=== PATIENT | male | born 1990 | race Caucasian/White ===

== ENCOUNTER 2020-12-07 09:26 | Emergency (ER) | payer OTHER, SELFPAY ==
--- NOTE | 2020-12-07 09:47 | ED.ABDPAIN ---
HPI - Abdominal Pain General Chief Complaint: Abdominal Pain Stated Complaint: ABD PAIN VOMITING Time Seen by Provider: 12/07/20 09:47 Source: patient Mode of arrival: ambulatory Limitations: no limitations History of Present Illness HPI narrative: 30 yo male with 1 week of diffuse abdominal pain and vomiting, has a hx of THC use was using heat to alleviate pain but at this time states it stopped working - had CT scan that was negative in June for similar complaint MD elicited complaint: abdominal pain Pertinent past history: other (hx of episodes in past) Onset (ago): week(s) (1) Pain Consistency: constant Severity: moderate Quality: cramping and aching Radiation: none Migration to: no migration Exacerbating factors: eating Relieving factors: nothing Context: history of similar episodes Associated symptoms: nausea, vomiting and diarrhea Related Data Previous Rx's Medication Instructions Recorded famotidine [Pepcid] 20 mg PO DAILY PRN #30 tab 12/07/20 ondansetron 4 mg PO Q8H PRN #20 tab 12/07/20 Allergies Allergy/AdvReac Type Severity Reaction Status Date / Time cefaclor [From [facility]] Allergy Unknown UNKNOWN Unverified 04/26/20 19:51 Review of Systems Review of Systems Constitutional : No Weight loss, No Fever, No Chills ENT/Mouth : No sore throat, No Rhinorrhea Eyes: No Swelling, No Redness Cardiovascular : No Chest Pain, No SOB, NoEdema Respiratory : No Cough, No Sputum, No Wheezing Gastrointestinal : Positive Nausea, Positive Vomiting, positive Diarrhea, positive abdominal Pain, No Hematochezia, No Melena Genitourinary : No Dysuria, No Urinary Frequency, No Hematuria, No Urgency Musculoskeletal : No joint pain, No Myalgias, No Joint Swelling Skin : No Skin Lesions, No rash Neuro : No Weakness, No Numbness, No Dizziness, No Headache Psych : No Anxiety/Panic, No Depression Heme/Lymph: No Bruising, No Lymphadenopathy Endocrine : No Polyuria, No Polydipsia All other systems reviewed and are negative. Physical Exam Vital Signs: Vital Signs: Last Vital Signs Temp 98.5 F 12/07/20 10:33 Pulse 54 12/07/20 12:45 Resp 16 12/07/20 12:45 BP 117/69 12/07/20 12:45 Pulse Ox 98 12/07/20 12:45 Body Mass Index 23.6 Appearance: Alert. Oriented X3. No acute distress. Eyes: Pupils equal, round and reactive to light. ENT: mild dry MM Neck: Normal inspection. Neck supple. CVS: Normal heart rate and rhythm. Pulses normal. Respiratory: No respiratory distress. Breath sounds normal. Abdomen: Soft and mild ttp no rebound or guarding Skin: Skin warm and dry. Normal skin color. Normal skin turgor. Extremities: No lower extremity edema. No calf ttp Neuro: Oriented X 3. No motor deficit. No sensory deficit. Course Course Course Narrative: patient feels much better, able to tolerate PO stable for DC MDM - Abdominal Pain MDM Narrative Medical decision making narrative: 30 yo male hx of episodes of vomiting, abd pain in the past with negative CT scan he does smoke THC but noted this episode of his stomach issues is about 1 week which is longer than usual - at this time will hydrate, obtain labs, IV anti emetics and pepcid, negative CT scan in June for similar complaints Lab Data Result diagrams: 12/07/20 10:14 12/07/20 11:59 Labs: Lab Results 12/07/20 12/07/20 12/07/20 Range/Units 10:14 10:14 10:14 WBC 7.1 (4.8-10.8) X10*3/uL RBC 4.65 (4.60-5.80) X10*6/uL Hgb 15.1 (14.0-18.0) g/dl Hct 41.9 L (42-52) % MCV 90.1 (80-98) fL MCH 32.5 (27.0-33.0) pg MCHC 36.0 (31.0-36.0) g/dl RDW 10.8 L (11.0-16.0) % Plt Count 214 (160-400) X10*3/uL MPV 9.1 L (9.4-12.4) fL Immature Gran % (Auto) 0.1 (0.0-0.4) % Neut % (Auto) 72.4 (45-73) % Lymph % (Auto) 19.1 L (20-40) % [place] % (Auto) 5.4 (2-11) % Eos % (Auto) 2.4 (0-4) % Baso % (Auto) 0.6 (0-2) % Lymph # (Auto) 1.4 (1.2-4.9) X10*3/uL [place] # (Auto) 0.4 (0.1-1.2) X10*3/uL Eos # (Auto) 0.2 (0.0-0.4) X10*3/uL Baso # (Auto) 0.0 (0.0-0.2) X10*3/uL Abs Immat Gran (auto) 0.01 (0.00-0.03) X10*3/uL Absolute Neuts (auto) 5.1 (2.0-8.3) X10*3/uL Absolute Nucleated RBC 0.000 (0.0-0.012) X10*3/uL Nucleated RBC % (auto) 0.0 (0.0-0.2) /100WBC Hold Blue Top SEE NOTE Sodium (135-145) mmol/L Potassium (3.3-5.1) mmol/L Chloride (96-108) mmol/L Carbon Dioxide (22-29) mmol/L Anion Gap (12-20) BUN (9-16) mg/dL Creatinine (0.5-1.4) mg/dL Estim Creat Clear Calc Estimated GFR Random Glucose (60-115) mg/dL Calcium (8.4-10.2) mg/dL Magnesium (1.6-2.6) mg/dL Total Bilirubin (0.0-1.0) mg/dL Direct Bilirubin (0.0-0.5) mg/dL AST (5-37) U/L ALT (0-40) U/L Alkaline Phosphatase (39-117) U/L Total Protein (6.5-8.0) g/dL Albumin (3.5-5.0) g/dL Lipase (8-78) U/L COVID-19 (SHERIN) Negative (Negative) COVID-19 Clin Com See Note 12/07/20 Range/Units 11:59 WBC (4.8-10.8) X10*3/uL RBC (4.60-5.80) X10*6/uL Hgb (14.0-18.0) g/dl Hct (42-52) % MCV (80-98) fL MCH (27.0-33.0) pg MCHC (31.0-36.0) g/dl RDW (11.0-16.0) % Plt Count (160-400) X10*3/uL MPV (9.4-12.4) fL Immature Gran % (Auto) (0.0-0.4) % Neut % (Auto) (45-73) % Lymph % (Auto) (20-40) % [place] % (Auto) (2-11) % Eos % (Auto) (0-4) % Baso % (Auto) (0-2) % Lymph # (Auto) (1.2-4.9) X10*3/uL [place] # (Auto) (0.1-1.2) X10*3/uL Eos # (Auto) (0.0-0.4) X10*3/uL Baso # (Auto) (0.0-0.2) X10*3/uL Abs Immat Gran (auto) (0.00-0.03) X10*3/uL Absolute Neuts (auto) (2.0-8.3) X10*3/uL Absolute Nucleated RBC (0.0-0.012) X10*3/uL Nucleated RBC % (auto) (0.0-0.2) /100WBC Hold Blue Top Sodium 139 (135-145) mmol/L Potassium 4.0 (3.3-5.1) mmol/L Chloride 103 (96-108) mmol/L Carbon Dioxide 28 (22-29) mmol/L Anion Gap 12 (12-20) BUN 16 (9-16) mg/dL Creatinine 1.01 (0.5-1.4) mg/dL Estim Creat Clear Calc 109.4 Estimated GFR > 60 Random Glucose 82 (60-115) mg/dL Calcium 9.2 (8.4-10.2) mg/dL Magnesium 2.2 (1.6-2.6) mg/dL Total Bilirubin 1.3 H (0.0-1.0) mg/dL Direct Bilirubin 0.5 (0.0-0.5) mg/dL AST 13 (5-37) U/L ALT 10 (0-40) U/L Alkaline Phosphatase 43 (39-117) U/L Total Protein 7.5 (6.5-8.0) g/dL Albumin 4.6 (3.5-5.0) g/dL Lipase 29 (8-78) U/L COVID-19 (SHERIN) (Negative) COVID-19 Clin Com Discharge Plan Discharge Clinical Impression: Vomiting Qualifiers: Vomiting type: unspecified Vomiting Intractability: non-intractable Nausea presence: with nausea Qualified Code(s): R11.2 - Nausea with vomiting, unspecified Gastritis Qualifiers: Gastritis type: unspecified gastritis Chronicity: acute Gastritis bleeding: without bleeding Qualified Code(s): K29.00 - Acute gastritis without bleeding Patient Disposition: Home, Self-Care Instructions: Gastritis (ED) Additional Instructions: return to ED for any worsening symptoms or concerns COVID negative Prescriptions: New famotidine [Pepcid] 20 mg tablet 20 mg PO DAILY PRN (Reason: abdominal discomfort) Qty: 30 RF: 0 ondansetron 4 mg tablet,disintegrating 4 mg PO Q8H PRN (Reason: nausea and vomiting) Qty: 20 RF: 0 Referrals: Payam Bear [Physician] - 1 week Stand Alone Forms: Work/School Release [facility] [place] Past Medical History Attestation statement: The following information was validated with the patient. Medical History No known health problems Social History Social History (Updated 12/07/20 @ 10:08 by Lianet Castro DO) Alcohol intake: never Smoking Status: Never smoker Use of substances other than those prescribed or required for medical reasons: No Substance Use Type: Marijuana Advance Directives: No Advance Directives Information Provided: No
[2020-12-07 10:03] VITALS: BP 117/69; PULSE 65; RESP 16; TEMP 36.9; O2SAT 99; BMI 23.6
[2020-12-07 10:20] LABS: MANUAL DIFF FLAG NO
[2020-12-07 10:22] LABS: Basophils Percent Auto 0.6 % (0-2); Eosinophils Absolute Auto 0.2 X10*3/uL (0.0-0.4); Eosinophils Percent Auto 2.4 % (0-4); Hematocrit 41.9 % (42-52); Hemoglobin 15.1 g/dl (14.0-18.0); Imm Gran Abs Auto 0.01 X10*3/uL (0.00-0.03); Imm Gran Pct Auto 0.1 % (0.0-0.4); Lymphocytes Absolute Auto 1.4 X10*3/uL (1.2-4.9); Lymphocytes Percent Auto 19.1 % (20-40); Mean Corpuscular Hemoglobin 32.5 pg (27.0-33.0); Mean Corpuscular Volume 90.1 fL (80-98); Mean Platelet Volume 9.1 fL (9.4-12.4); Monocytes Absolute Auto 0.4 X10*3/uL (0.1-1.2); Monocytes Percent Auto 5.4 % (2-11); Neutrophils Absolute Auto 5.1 X10*3/uL (2.0-8.3); Neutrophils Percent Auto 72.4 % (45-73); Platelet Count 214 X10*3/uL (160-400); Red Blood Count 4.65 X10*6/uL (4.60-5.80); Red Cell Distribution Width 10.8 % (11.0-16.0); White Blood Count 7.1 X10*3/uL (4.8-10.8)
[2020-12-07] MEDS: 0.9 % Sodium Chloride 1,000 ML 999 ML IVCONT (10:23)
[2020-12-07] MEDS: Metoclopramide HCl 10 MG/2 ML VIAL IVPUSH (10:24)
[2020-12-07] MEDS: diphenhydrAMINE HCL 50 MG/ML VIAL 25 MG IVPUSH (10:24)
[2020-12-07] MEDS: Famotidine/PF 20 MG/2 ML VIAL IVPUSH (10:24)
[2020-12-07 10:33] VITALS: BP 117/69; PULSE 65; RESP 16; TEMP 36.9; O2SAT 99
[2020-12-07 10:37] LABS: COVID-19 Test Negative (Negative)
[2020-12-07 11:44] VITALS: BP 117/69; PULSE 54; RESP 16; O2SAT 98
[2020-12-07 12:42] LABS: Alanine Aminotransferase 10 U/L (0-40); Albumin Level 4.6 g/dL (3.5-5.0); Alkaline Phosphatase 43 U/L (39-117); Anion Gap 12 (12-20); Aspartate Amino Transferase 13 U/L (5-37); Bilirubin Direct 0.5 mg/dL (0.0-0.5); Bilirubin Total 1.3 mg/dL (0.0-1.0); Blood Urea Nitrogen 16 mg/dL (9-16); Calcium 9.2 mg/dL (8.4-10.2); Carbon Dioxide 28 mmol/L (22-29); Chloride 103 mmol/L (96-108); Creatinine Clr Calc Pharmacy 109.4; Estimated Glomerular Filt Rate > 60; Glucose Random 82 mg/dL (60-115); Lipase 29 U/L (8-78); Magnesium 2.2 mg/dL (1.6-2.6); Sodium 139 mmol/L (135-145); Total Protein 7.5 g/dL (6.5-8.0)
[2020-12-07 12:45] VITALS: BP 117/69; PULSE 54; RESP 16; O2SAT 98
[2020-12-07] MEDS: Magnesium Hydrox/Alum Hydrox 30 ML ORAL.SUSP PO (13:28)
[2020-12-07] MEDS: Lidocaine HCl Viscous 2 % 15 ML SOLUTION MUCOUS MEM (13:28)
[2020-12-07 13:31] VITALS: BP 121/80; PULSE 99; RESP 16; O2SAT 99
--- NOTE | 2020-12-07 13:42 | PC.NURSE ---
PT states abdominal discomfort has improved, nausea better. He states he will follow with PCP as directed and return if worse. He is ambulatory to bathroom and to room in no distress. Pt ready for discharge home.
== END 2020-12-07 13:43 | disposition home or self-care (01) ==
PROVIDERS: Emergency Provider Emergency Medicine
DX: K29.00 Acute gastritis without bleeding (principal); Z20.822 Contact with and (suspected) exposure to COVID-19; R11.2 Nausea with vomiting, unspecified; F12.90 Cannabis use, unspecified, uncomplicated
CPT/HCPCS: 36415; 80048; 80076; 83690; 83735; 85025; 87635; 96361; 96374; 96375; 99284; J1200; J2765

== ENCOUNTER 2022-08-24 13:13 | Emergency (ER) | payer OTHER, SELFPAY ==
[2022-08-24 13:16] VITALS: BP 143/90; PULSE 106; RESP 18; TEMP 37; O2SAT 99; BMI 19.8
--- NOTE | 2022-08-24 13:18 | ED.GENADULT ---
HPI - General Adult General Chief complaint: Upper Respiratory Symptoms <ADITHYA Arroyo Last Filed: 08/24/22 18:29> Stated complaint: Vomiting <ADITHYA Arroyo Last Filed: 08/24/22 18:29> Time Seen by Provider: 08/24/22 15:18 <ADITHYA Arroyo Last Filed: 08/24/22 18:29> History of Present Illness HPI narrative: Patient complains of body aches fever fatigue for 3 days, and then yesterday he began with diarrhea and vomiting, there was 1 episode of blood in the vomitus, but there was no tearing pain no neck pain no chest pain and there is no blood in the diarrhea there is no coffee-grounds no black stool no no dizziness no fainting no bleeding from any other site He denies any cough or shortness of breath no chest pain no rashes no coffee-ground vomitus no dysuria no dizziness no fainting <ADITHYA Ren Last Filed: 08/24/22 19:19> Related Data Home medications: Previous Rx's Medication Instructions Recorded famotidine 20 mg tablet (Pepcid) 20 mg PO DAILY PRN abdominal 12/07/20 discomfort #30 tabs ondansetron 4 mg disintegrating 4 mg PO Q8H PRN nausea and 12/07/20 tablet vomiting #20 tabs ibuprofen 600 mg tablet 600 mg PO Q6H PRN fever or pain 08/24/22 #20 tabs loperamide 2 mg tablet (Imodium 2 mg PO Q4H PRN loose stool #10 08/24/22 A-D) tabs loperamide 2 mg tablet (Imodium 2 mg PO Q4H PRN loose stool #14 08/24/22 A-D) tabs ondansetron 4 mg disintegrating 4 mg PO Q6H PRN nausea and 08/24/22 tablet vomiting #14 tabs <ADITHYA Arroyo Last Filed: 08/24/22 18:29> Allergies/adverse reactions: Allergies Allergy/AdvReac Type Severity Reaction Status Date / Time cefaclor [[facility]] Allergy Unknown UNKNOWN Verified 08/24/22 13:16 <ADITHYA Arroyo Last Filed: 08/24/22 18:29> [facility] Past Medical History Source: nursing notes reviewed <ADITHYA Ren Filed: 08/24/22 19:19> Medical History: Medical History No known health problems <ADITHYA Arroyo Last Filed: 08/24/22 18:29> Social History Social History: Social History (Updated 12/07/20 @ 10:08 by Kristyn Castro DO) Alcohol intake: never Substance Use Type: Marijuana Advance Directives: No Advance Directives Information Provided: No <ADITHYA Arroyo Last Filed: 08/24/22 18:29> Physical Exam ED Vital Signs: Vital Signs - 24 hr 08/24/22 13:16 Temperature 98.6 F Pulse Rate 106 H Respiratory Rate 18 Blood Pressure 143/90 H Pulse Oximetry 99 Oxygen Delivery Method Room Air BMI result Body Mass Index 19.8 <ADITHYA Arroyo Last Filed: 08/24/22 18:29> Vital Signs - 24 hr 08/24/22 13:16 Temperature 98.6 F Pulse Rate 106 H Respiratory Rate 18 Blood Pressure 143/90 H Pulse Oximetry 99 Oxygen Delivery Method Room Air BMI result Body Mass Index 19.8 <ADITHYA Ren - Last Filed: 08/24/22 19:19> General appearance no acute distress Eyes anicteric no pallor The pharynx mucous membranes are mildly dry, there is no redness swelling or exudate no impairment of breathing or swallowing, voice is normal no drooling Neck is supple Chest clear to auscultation bilateral The abdomen is soft nontender no rebound no guarding Rectal exam was guaiac-negative with normal appearing brown stool on the glove no masses no tenderness Extremities no edema Skin no rashes <ADITHYA Ren - Last Filed: 08/24/22 19:19> Course Course Course Narrative: RME: 32 yold male presents to the ED for headache, fever, nausea, bodyaches, and mutliple of emesis. patient states no abdominal pain, dysuria, hematuria, or flank pain. patient states one episode of some blood in emesis. no abdominal tenderness. SARS and basic labs ordered <ADITHYA Arroyo Last Filed: 08/24/22 18:29> RME: 32 yold male presents to the ED for headache, fever, nausea, bodyaches, and mutliple of emesis. patient states no abdominal pain, dysuria, hematuria, or flank pain. patient states one episode of some blood in emesis. no abdominal tenderness. SARS and basic labs ordered Patient was hydrated with a L of fluid and given Zofran which resolved his nausea he felt very improved and was given water and dannie cande to drink with no nausea Patient had 1 episode of vomiting with some flecks of red blood but vomiting afterwards there was no blood in it, rectal exam was negative, there was no esophageal pain no neck pain no throat pain no chest pain and blood naldo vomitus was likely from irritation of soft tissue, not from injury to the esophagus Lab evaluation, hemoglobin hematocrit were 4.1 and 13.3 which is slightly lower than prior Chemistries showed no acute abnormalities, LFTs were normal Serology showed flu positive Patient has had symptoms for 3 days so no Tamiflu was offered and well-appearing patient now tolerating p.o. feeling improved is discharged <ADITHYA Ren - Last Filed: 08/24/22 19:19> Medications Administered Discontinued Medications Generic Name Dose Route Start Last Admin Trade Name Freq PRN Reason Stop Dose Admin Sodium Chloride 1,000 mls @ 999 mls/hr 08/24/22 15:30 08/24/22 17:06 Ns IVCONT 08/24/22 16:30 Infused .Q1H1M DEVON Infusion Ibuprofen 600 mg 08/24/22 17:59 08/24/22 18:02 Ibuprofen 600 Mg Tablet PO 08/24/22 18:00 600 mg ONCE ONE Administration Ondansetron HCl 4 mg 08/24/22 15:25 08/24/22 15:56 Ondansetron Hcl 4 Mg/2 Ml Vial IVPUSH 08/24/22 15:26 4 mg ONCE ONE Administration <ADITHYA Arroyo - Last Filed: 08/24/22 18:29> Medications Administered Discontinued Medications Generic Name Dose Route Start Last Admin Trade Name Freq PRN Reason Stop Dose Admin Sodium Chloride 1,000 mls @ 999 mls/hr 08/24/22 15:30 08/24/22 17:06 Ns IVCONT 08/24/22 16:30 Infused .Q1H1M DEVON Infusion Ibuprofen 600 mg 08/24/22 17:59 08/24/22 18:02 Ibuprofen 600 Mg Tablet PO 08/24/22 18:00 600 mg ONCE ONE Administration Ondansetron HCl 4 mg 08/24/22 15:25 08/24/22 15:56 Ondansetron Hcl 4 Mg/2 Ml Vial IVPUSH 08/24/22 15:26 4 mg ONCE ONE Administration <ADITHYA Ren - Last Filed: 08/24/22 19:19> Medical Decision Making Lab Data MDM Lab Attestation statement: I reviewed the patient's lab results. <ADITHYA Ren - Last Filed: 08/24/22 19:19> Result Diagrams: 08/24/22 14:17 08/24/22 14:17 <ADITHYA Arroyo - Last Filed: 08/24/22 18:29> Labs: Lab Results 08/24/22 08/24/22 08/24/22 Range/Units 14:17 14:17 14:17 WBC 10.6 (4.8-10.8) X10*3/uL RBC 4.17 L (4.60-5.80) X10*6/uL Hgb 13.3 L (14.0-18.0) g/dl Hct 38.0 L (42.0-52.0) % MCV 91.1 (80.0-98.0) fL MCH 31.9 (27.0-33.0) pg MCHC 35.0 (31.0-36.0) g/dl RDW 11.1 (11.0-16.0) % Plt Count 226 (160-400) X10*3/uL MPV 8.5 L (9.4-12.4) fL Immature Gran % (Auto) 0.3 (0.0-0.4) % Neut % (Auto) 83.6 H (45-73) % Lymph % (Auto) 6.6 L (20-40) % [place] % (Auto) 8.7 (2-11) % Eos % (Auto) 0.4 (0-4) % Baso % (Auto) 0.4 (0-2) % Lymph # (Auto) 0.7 L (1.2-4.9) X10*3/uL [place] # (Auto) 0.9 (0.1-1.2) X10*3/uL Eos # (Auto) 0.0 (0.0-0.4) X10*3/uL Baso # (Auto) 0.0 (0.0-0.2) X10*3/uL Abs Immat Gran (auto) 0.03 (0.00-0.03) X10*3/uL Absolute Neuts (auto) 8.8 H (2.0-8.3) x10*3/uL Absolute Nucleated RBC 0.000 (0.0-0.012) X10*3/uL Nucleated RBC % (auto) 0.0 (0.0-0.2) /100WBC PT 12.5 (10.0-13.1) SEC INR 1.1 (0.9-1.1) APTT 30.2 (26.0-36.4) SEC Sodium (135-145) mmol/L Potassium (3.3-5.1) mmol/L Chloride (96-108) mmol/L Carbon Dioxide (22-29) mmol/L Anion Gap (12-20) BUN (9-16) mg/dL Creatinine (0.5-1.4) mg/dL Estim Creat Clear Calc Estimated GFR Random Glucose (60-115) mg/dL Calcium (8.4-10.2) mg/dL Total Bilirubin (0.0-1.0) mg/dL AST (5-37) U/L ALT (0-40) U/L Alkaline Phosphatase (39-117) U/L Total Protein (6.5-8.0) g/dL Albumin (3.5-5.0) g/dL Lipase (8-78) U/L Stool Occult Blood (NEGATIVE) Influenza Type A (PCR) POSITIVE A (Negative) Influenza Type B (PCR) NEGATIVE (Negative) RSV RNA Qual (PCR) NEGATIVE (Negative) SARS-CoV-2 RNA (RT-PCR) NEGATIVE (Negative) 08/24/22 08/24/22 Range/Units 14:17 15:49 WBC (4.8-10.8) X10*3/uL RBC (4.60-5.80) X10*6/uL Hgb (14.0-18.0) g/dl Hct (42.0-52.0) % MCV (80.0-98.0) fL MCH (27.0-33.0) pg MCHC (31.0-36.0) g/dl RDW (11.0-16.0) % Plt Count (160-400) X10*3/uL MPV (9.4-12.4) fL Immature Gran % (Auto) (0.0-0.4) % Neut % (Auto) (45-73) % Lymph % (Auto) (20-40) % [place] % (Auto) (2-11) % Eos % (Auto) (0-4) % Baso % (Auto) (0-2) % Lymph # (Auto) (1.2-4.9) X10*3/uL [place] # (Auto) (0.1-1.2) X10*3/uL Eos # (Auto) (0.0-0.4) X10*3/uL Baso # (Auto) (0.0-0.2) X10*3/uL Abs Immat Gran (auto) (0.00-0.03) X10*3/uL Absolute Neuts (auto) (2.0-8.3) x10*3/uL Absolute Nucleated RBC (0.0-0.012) X10*3/uL Nucleated RBC % (auto) (0.0-0.2) /100WBC PT (10.0-13.1) SEC INR (0.9-1.1) APTT (26.0-36.4) SEC Sodium 139 (135-145) mmol/L Potassium 3.8 (3.3-5.1) mmol/L Chloride 102 (96-108) mmol/L Carbon Dioxide 24 (22-29) mmol/L Anion Gap 17 (12-20) BUN 14 (9-16) mg/dL Creatinine 0.99 (0.5-1.4) mg/dL Estim Creat Clear Calc 88.5 Estimated GFR > 60 Random Glucose 107 (60-115) mg/dL Calcium 9.5 (8.4-10.2) mg/dL Total Bilirubin 0.7 (0.0-1.0) mg/dL AST 27 (5-37) U/L ALT 31 (0-40) U/L Alkaline Phosphatase 64 (39-117) U/L Total Protein 7.9 (6.5-8.0) g/dL Albumin 4.5 (3.5-5.0) g/dL Lipase 38 (8-78) U/L Stool Occult Blood NEGATIVE (NEGATIVE) Influenza Type A (PCR) (Negative) Influenza Type B (PCR) (Negative) RSV RNA Qual (PCR) (Negative) SARS-CoV-2 RNA (RT-PCR) (Negative) <ADITHYA Arroyo - Last Filed: 08/24/22 18:29> Lab Results 08/24/22 08/24/22 08/24/22 Range/Units 14:17 14:17 14:17 WBC 10.6 (4.8-10.8) X10*3/uL RBC 4.17 L (4.60-5.80) X10*6/uL Hgb 13.3 L (14.0-18.0) g/dl Hct 38.0 L (42.0-52.0) % MCV 91.1 (80.0-98.0) fL MCH 31.9 (27.0-33.0) pg MCHC 35.0 (31.0-36.0) g/dl RDW 11.1 (11.0-16.0) % Plt Count 226 (160-400) X10*3/uL MPV 8.5 L (9.4-12.4) fL Immature Gran % (Auto) 0.3 (0.0-0.4) % Neut % (Auto) 83.6 H (45-73) % Lymph % (Auto) 6.6 L (20-40) % [place] % (Auto) 8.7 (2-11) % Eos % (Auto) 0.4 (0-4) % Baso % (Auto) 0.4 (0-2) % Lymph # (Auto) 0.7 L (1.2-4.9) X10*3/uL [place] # (Auto) 0.9 (0.1-1.2) X10*3/uL Eos # (Auto) 0.0 (0.0-0.4) X10*3/uL Baso # (Auto) 0.0 (0.0-0.2) X10*3/uL Abs Immat Gran (auto) 0.03 (0.00-0.03) X10*3/uL Absolute Neuts (auto) 8.8 H (2.0-8.3) x10*3/uL Absolute Nucleated RBC 0.000 (0.0-0.012) X10*3/uL Nucleated RBC % (auto) 0.0 (0.0-0.2) /100WBC PT 12.5 (10.0-13.1) SEC INR 1.1 (0.9-1.1) APTT 30.2 (26.0-36.4) SEC Sodium (135-145) mmol/L Potassium (3.3-5.1) mmol/L Chloride (96-108) mmol/L Carbon Dioxide (22-29) mmol/L Anion Gap (12-20) BUN (9-16) mg/dL Creatinine (0.5-1.4) mg/dL Estim Creat Clear Calc Estimated GFR Random Glucose (60-115) mg/dL Calcium (8.4-10.2) mg/dL Total Bilirubin (0.0-1.0) mg/dL AST (5-37) U/L ALT (0-40) U/L Alkaline Phosphatase (39-117) U/L Total Protein (6.5-8.0) g/dL Albumin (3.5-5.0) g/dL Lipase (8-78) U/L Stool Occult Blood (NEGATIVE) Influenza Type A (PCR) POSITIVE A (Negative) Influenza Type B (PCR) NEGATIVE (Negative) RSV RNA Qual (PCR) NEGATIVE (Negative) SARS-CoV-2 RNA (RT-PCR) NEGATIVE (Negative) 08/24/22 08/24/22 Range/Units 14:17 15:49 WBC (4.8-10.8) X10*3/uL RBC (4.60-5.80) X10*6/uL Hgb (14.0-18.0) g/dl Hct (42.0-52.0) % MCV (80.0-98.0) fL MCH (27.0-33.0) pg MCHC (31.0-36.0) g/dl RDW (11.0-16.0) % Plt Count (160-400) X10*3/uL MPV (9.4-12.4) fL Immature Gran % (Auto) (0.0-0.4) % Neut % (Auto) (45-73) % Lymph % (Auto) (20-40) % [place] % (Auto) (2-11) % Eos % (Auto) (0-4) % Baso % (Auto) (0-2) % Lymph # (Auto) (1.2-4.9) X10*3/uL [place] # (Auto) (0.1-1.2) X10*3/uL Eos # (Auto) (0.0-0.4) X10*3/uL Baso # (Auto) (0.0-0.2) X10*3/uL Abs Immat Gran (auto) (0.00-0.03) X10*3/uL Absolute Neuts (auto) (2.0-8.3) x10*3/uL Absolute Nucleated RBC (0.0-0.012) X10*3/uL Nucleated RBC % (auto) (0.0-0.2) /100WBC PT (10.0-13.1) SEC INR (0.9-1.1) APTT (26.0-36.4) SEC Sodium 139 (135-145) mmol/L Potassium 3.8 (3.3-5.1) mmol/L Chloride 102 (96-108) mmol/L Carbon Dioxide 24 (22-29) mmol/L Anion Gap 17 (12-20) BUN 14 (9-16) mg/dL Creatinine 0.99 (0.5-1.4) mg/dL Estim Creat Clear Calc 88.5 Estimated GFR > 60 Random Glucose 107 (60-115) mg/dL Calcium 9.5 (8.4-10.2) mg/dL Total Bilirubin 0.7 (0.0-1.0) mg/dL AST 27 (5-37) U/L ALT 31 (0-40) U/L Alkaline Phosphatase 64 (39-117) U/L Total Protein 7.9 (6.5-8.0) g/dL Albumin 4.5 (3.5-5.0) g/dL Lipase 38 (8-78) U/L Stool Occult Blood NEGATIVE (NEGATIVE) Influenza Type A (PCR) (Negative) Influenza Type B (PCR) (Negative) RSV RNA Qual (PCR) (Negative) SARS-CoV-2 RNA (RT-PCR) (Negative) <ADITHYA Ren - Last Filed: 08/24/22 19:19> Discharge Plan Discharge Clinical Impression: Influenza, Vomiting, Diarrhea <ADITHYA Arroyo - Last Filed: 08/24/22 18:29> Patient Disposition: Home, Self-Care <ADITHYA Arroyo Last Filed: 08/24/22 18:29> Additional Instructions: You tested positive for flu which is contagious so you should take next week off You can use Zofran for nausea You can use Imodium if needed for diarrhea Tylenol or Motrin for aches and pain Drink plenty of fluids Return to the ER any time for a controlled vomiting, dehydration, any worse condition or any concerns Your blood count was slightly low so this should be recheck at your doctor's office routinely when you are better from the flu <ADITHYA Arroyo - Last Filed: 08/24/22 18:29> Prescriptions: New ondansetron 4 mg tablet,disintegrating 4 mg PO Q6H PRN (Reason: nausea and vomiting) Qty: 14 0RF loperamide [Imodium A-D] 2 mg tablet 2 mg PO Q4H PRN (Reason: loose stool) Qty: 14 0RF Rx Instructions: administer after each loose stool until symptoms controlled; do not exceed 8 mg per 24 hrs loperamide [Imodium A-D] 2 mg tablet 2 mg PO Q4H PRN (Reason: loose stool) Qty: 10 0RF Rx Instructions: administer after each loose stool until symptoms controlled; do not exceed 8 mg per 24 hrs ibuprofen 600 mg tablet 600 mg PO Q6H PRN (Reason: fever or pain) Qty: 20 0RF No Action famotidine [Pepcid] 20 mg tablet 20 mg PO DAILY PRN (Reason: abdominal discomfort) Qty: 30 0RF ondansetron 4 mg tablet,disintegrating 4 mg PO Q8H PRN (Reason: nausea and vomiting) Qty: 20 0RF <ADITHYA Arroyo - Last Filed: 08/24/22 18:29> Stand Alone Forms: Work/School Release <ADITHYA Arroyo Last Filed: 08/24/22 18:29> Interventions: ED Discharge Assessment Last Done: 08/24/22 18:20 <ADITHYA Arroyo - Last Filed: 08/24/22 18:29> Discharge Date/Time: 08/24/22 18:20 <ADITHYA Arroyo - Last Filed: 08/24/22 18:29>
[2022-08-24 14:30] LABS: MANUAL DIFF FLAG NO
[2022-08-24 14:31] LABS: Basophils Percent Auto 0.4 % (0-2); Eosinophils Percent Auto 0.4 % (0-4); Hemoglobin 13.3 g/dl (14.0-18.0); Imm Gran Abs Auto 0.03 X10*3/uL (0.00-0.03); Imm Gran Pct Auto 0.3 % (0.0-0.4); Lymphocytes Absolute Auto 0.7 X10*3/uL (1.2-4.9); Lymphocytes Percent Auto 6.6 % (20-40); Mean Corpuscular Hemoglobin 31.9 pg (27.0-33.0); Mean Corpuscular Volume 91.1 fL (80.0-98.0); Mean Platelet Volume 8.5 fL (9.4-12.4); Monocytes Absolute Auto 0.9 X10*3/uL (0.1-1.2); Monocytes Percent Auto 8.7 % (2-11); Neutrophils Absolute Auto 8.8 x10*3/uL (2.0-8.3); Neutrophils Percent Auto 83.6 % (45-73); Platelet Count 226 X10*3/uL (160-400); Red Blood Count 4.17 X10*6/uL (4.60-5.80); Red Cell Distribution Width 11.1 % (11.0-16.0); White Blood Count 10.6 X10*3/uL (4.8-10.8)
[2022-08-24 14:37] LABS: INTERNATIONAL NORM RATIO 1.1 (0.9-1.1); Prothrombin Time 12.5 SEC (10.0-13.1)
[2022-08-24 14:39] LABS: Partial Thromboplastin Time 30.2 SEC (26.0-36.4)
[2022-08-24 14:54] LABS: Alanine Aminotransferase 31 U/L (0-40); Albumin Level 4.5 g/dL (3.5-5.0); Alkaline Phosphatase 64 U/L (39-117); Anion Gap 17 (12-20); Aspartate Amino Transferase 27 U/L (5-37); Bilirubin Total 0.7 mg/dL (0.0-1.0); Blood Urea Nitrogen 14 mg/dL (9-16); Calcium 9.5 mg/dL (8.4-10.2); Carbon Dioxide 24 mmol/L (22-29); Chloride 102 mmol/L (96-108); Creatinine Clr Calc Pharmacy 88.5; Estimated Glomerular Filt Rate > 60; Glucose Random 107 mg/dL (60-115); Lipase 38 U/L (8-78); Potassium 3.8 mmol/L (3.3-5.1); Sodium 139 mmol/L (135-145); Total Protein 7.9 g/dL (6.5-8.0)
[2022-08-24 15:08] LABS: Influenza A PCR POSITIVE (Negative); Influenza B PCR NEGATIVE (Negative); Resp Syncy Virus RNA Qual PCR NEGATIVE (Negative); SARS COV2 PCR INHOUSE NEGATIVE (Negative)
[2022-08-24 15:54] LABS: OBS Int Ctl Valid YES; OBS1 NEGATIVE (NEGATIVE)
[2022-08-24] MEDS: ondansetron HCL 4 MG/2 ML VIAL IVPUSH (15:56)
[2022-08-24] MEDS: 0.9 % Sodium Chloride 1,000 ML 999 ML IVCONT (15:56)
[2022-08-24] MEDS: Ibuprofen 600 MG TABLET PO (18:02)
== END 2022-08-24 18:20 | disposition home or self-care (01) ==
PROVIDERS: Physician Assistant; Physician Assistant Medical; Emergency Provider Internal Medicine
DX: J10.1 Influenza due to other identified influenza virus with other respiratory manifestations (principal); R11.2 Nausea with vomiting, unspecified; R19.7 Diarrhea, unspecified; Z20.822 Contact with and (suspected) exposure to COVID-19; Z20.828 Contact with and (suspected) exposure to other viral communicable diseases; Z79.899 Other long term (current) drug therapy
CPT/HCPCS: 0241U; 36415; 80053; 82272; 83690; 85025; 85610; 85730; 96361; 96374; 99283; 99284; J2405

== ENCOUNTER 2023-10-14 04:20 | Emergency (ER) | payer SELFPAY ==
[2023-10-14 04:40] VITALS: BP 114/75; PULSE 96; RESP 18; TEMP 37.3; O2SAT 100
[2023-10-14 04:42] VITALS: BMI 26.4
[2023-10-14 05:25] LABS: Influenza A PCR NEGATIVE (Negative); Influenza B PCR NEGATIVE (Negative); Resp Syncy Virus RNA Qual PCR NEGATIVE (Negative); SARS COV2 PCR INHOUSE POSITIVE (Negative)
--- NOTE | 2023-10-14 06:52 | ED_ITS ---
HPI - General Adult General Chief complaint: Upper Respiratory Symptoms Stated complaint: flu like Time Seen by Provider: 10/14/23 06:52 Source: patient Mode of arrival: ambulatory Limitations: no limitations History of Present Illness HPI narrative: Patient is a 33 year old assigned male at with no reported medical history presenting to the emergency department today with cough and congestion. Patient states that over the last day he has had cough and congestion. Patient denies any dizziness, lightheadedness, abdominal pain, nausea, vomiting, fever, chills, blurry vision, double vision, loss of vision, chest pain, difficulty breathing, shortness of breath, back pain, night sweats, pain with urination, increased urinary frequency, increased urinary urgency, blood in his urine or stool, syncope or a near syncopal episode, recent trauma or falls, bowel incontinence, bladder incontinence, bowel retention, bladder retention, or any other complaints at this time. Onset (ago): day(s) (1) Severity: mild Severity scale (1-10): 3 Relieving factors: none Exacerbating factors: none Associated symptoms: cough Treatments prior to arrival: none Related Data Previous Rx's Medication Instructions Recorded famotidine 20 mg tablet (Pepcid) 20 mg PO DAILY PRN abdominal 12/07/20 discomfort #30 tabs ondansetron 4 mg disintegrating 4 mg PO Q8H PRN nausea and 12/07/20 tablet vomiting #20 tabs ibuprofen 600 mg tablet 600 mg PO Q6H PRN fever or pain 08/24/22 #20 tabs loperamide 2 mg tablet (Imodium 2 mg PO Q4H PRN loose stool #10 08/24/22 A-D) tabs loperamide 2 mg tablet (Imodium 2 mg PO Q4H PRN loose stool #14 08/24/22 A-D) tabs ondansetron 4 mg disintegrating 4 mg PO Q6H PRN nausea and 08/24/22 tablet vomiting #14 tabs Allergies Allergy/AdvReac Type Severity Reaction Status Date / Time cefaclor [From [facility]] Allergy Unknown UNKNOWN Verified 10/14/23 04:46 Review of Systems Constitutional: Constitutional: Reports no additional constitutional complaints, Denies chills, Denies fever(s) and Denies night sweats Eyes: Eyes: Reports no additional eye complaints, Denies blurry vision, Denies change in vision, Denies diplopia, Denies eye discharge, Denies loss of vision and Denies eye pain ENT: Denies dizziness and Reports nasal congestion Cardiovascular: Cardiovascular: Reports no additional cardiovascular complaints, Denies chest pain, Denies lightheadedness, Denies Loss of Consciousness and Denies dyspnea Respiratory: Respiratory: Reports no additional respiratory complaints, Reports cough and Denies dyspnea Gastrointestinal: Gastrointestinal: Reports no additional gastrointestinal complaints, Denies abdominal pain, Denies melena, Denies hematochezia, Denies change in bowel habits and Denies change in stool character Genitourinary: Genitourinary: Reports no additional male genitourinary complaints, Denies hematuria, Denies oliguria, Denies difficulty urinating, Denies dysuria, Denies urinary frequency, Denies urinary hesitancy, Denies urinary incontinence and Denies urinary urgency Musculoskeletal: Musculoskeletal: Reports no additional musculoskeletal complaints, Denies numbness and Denies tingling Neurologic: Denies dizziness, Denies loss of vision, Denies numbness and Denies tingling Psychiatric: Psychiatric: Reports no additional psychiatric complaints Endocrine: Endocrine: Reports no additional endocrine complaints Hematologic/Lymphatic: Hematologic/Lymphatic: Reports no additional hematologic/lymphatic complaints Allergic/Immunologic: Allergic/Immunologic: Reports no additional allergic/immunologic complaints PMFSH Past Medical History Attestation statement: The following information was validated with the patient. Source: old records reviewed and nursing notes reviewed Medical History No known health problems Social History Social History Alcohol intake: never Substance Use Type: Marijuana Advance Directives: No Advance Directives Information Provided: No Physical Exam ED Vital Signs: Vital Signs - 24 hr 10/14/23 04:40 Temperature 99.2 F Pulse Rate 96 Respiratory Rate 18 Blood Pressure 114/75 Pulse Oximetry 100 Oxygen Delivery Method Room Air BMI result Body Mass Index 26.4 Const General: cooperative, no acute distress, alert and awake Nutritional Appearance: well nourished Orientation/consciousness: patient oriented x3 Limitations: no limitations HENMT Head: Yes normal to inspection and Yes atraumatic Ears: hearing grossly normal bilaterally and external ears normal General nose exam: Normal external nose present, no nasal discharge noted and no epistaxis Face and sinus: Yes normal facial exam, No abrasion and No laceration Mouth: Normal oral and palatal mucosa present, no drooling and no muffled voice Eyes General: appearance normal, both eyes and all related structures Periorbital: periorbital findings normal Eyelids: Yes eyelids normal Conjunctivae: conjunctivae normal Pupils: Equal, round and reactive pupils present EOM: EOMs intact bilaterally Neck Neck: Yes normal visual inspection, Yes full ROM and Yes no lymphadenopathy Chest Chest palpation & inspection: normal inspection of the chest Resp Effort & Inspection: normal respiratory effort and able to speak in complete sentences GI Inspection: Yes normal to inspection Neuro General: patient oriented x3 and moves all extremities Cranial nerves: Yes Equal, round and reactive pupils present Cognition (Neuro): normal cognition Motor exam (neuro): 5/5 motor strength present throughout Sensory Exam: Normal double simultaneous stimulation for sensation Coordination: [id number] test normal Extrem General: Yes normal to inspection, Yes full ROM and Yes capillary refill normal Psych Appearance: grossly normal Mental Status: mental status grossly normal Affect: normal affect Attitude: cooperative Thought process: Normal thought process present Thought content: Normal thought content present Insight: Good insight present (Psych) Medical Decision Making Medical Decision Making MDM Narrative: Patient is a 33 year old assigned male at with no reported medical history presenting to the emergency department today with a cough and nasal congestion. Patient's physical exam was unremarkable. Patient's COVID-19 test was positive. I explained my physical exam findings as well as all test results to the patient. I answered all questions asked by the patient. I stressed the importance of the patient taking his medication as prescribed. I stressed the importance of the patient following up with his primary care provider. I stressed the importance of the patient returning to the emergency department immediately if his symptoms were to worsen or if he were to develop any dizziness, shortness of breath, difficulty breathing, chest pain, blurry vision, loss of vision, nausea, vomiting, abdominal pain, fever, chills, back pain, or any other complaints. Patient verbalized agreement and understanding with this treatment plan and discharge. Differential Diagnosis Differential Diagnoses: The differential diagnosis associated with the presentation includes COVID-19 Influenza RSV Admission/Observation Consideration of admission/observation: Escalation of care including admission/observation considered Patient would have been admitted to the hospital had his work up had any findings where hospital admission was appropriate and his clinical presentation warranted hospital admission. Lab Data MDM Lab Attestation statement: I reviewed the patient's lab results. My interpretation of these results are in the [facility] Rationale portion of this note. Labs: Lab Results 10/14/23 Range/Units 04:44 Influenza Type A (PCR) NEGATIVE (Negative) Influenza Type B (PCR) NEGATIVE (Negative) RSV RNA Qual (PCR) NEGATIVE (Negative) SARS-CoV-2 RNA (RT-PCR) POSITIVE A (Negative) Discharge Plan Discharge Clinical Impression: COVID-19 Patient Disposition: Home, Self-Care Instructions: COVID-19 (Coronavirus Disease 2019) (ED) Additional Instructions: Follow up with your primary care provider. Return to the emergency department immediately if your symptoms worsen or if you develop any dizziness, shortness of breath, difficulty breathing, chest pain, blurry vision, loss of vision, nausea, vomiting, abdominal pain, fever, chills, back pain, or any other complaints. Prescriptions: No Action famotidine [Pepcid] 20 mg tablet 20 mg PO DAILY PRN (Reason: abdominal discomfort) Qty: 30 0RF ondansetron 4 mg tablet,disintegrating 4 mg PO Q8H PRN (Reason: nausea and vomiting) Qty: 20 0RF ondansetron 4 mg tablet,disintegrating 4 mg PO Q6H PRN (Reason: nausea and vomiting) Qty: 14 0RF loperamide [Imodium A-D] 2 mg tablet 2 mg PO Q4H PRN (Reason: loose stool) Qty: 14 0RF Rx Instructions: administer after each loose stool until symptoms controlled; do not exceed 8 mg per 24 hrs loperamide [Imodium A-D] 2 mg tablet 2 mg PO Q4H PRN (Reason: loose stool) Qty: 10 0RF Rx Instructions: administer after each loose stool until symptoms controlled; do not exceed 8 mg per 24 hrs ibuprofen 600 mg tablet 600 mg PO Q6H PRN (Reason: fever or pain) Qty: 20 0RF Referrals: [facility] [place] [facility] [Provider Group] (Call to establish and follow up with a primary care provider. If you already have a primary care provider, please follow up with them.) [facility] [place] [facility] [Provider Group] (Call to establish and follow up with a primary care provider. If you already have a primary care provider, please follow up with them.) [facility] [place] [facility] [Provider Group] (Call to establish and follow up with a primary care provider. If you already have a primary care provider, please follow up with them.) Stand Alone Forms: Work/School Release Interventions: ED Discharge Assessment Last Done: 10/14/23 07:21 Discharge Date/Time: 10/14/23 07:22 Print Language: Syriac
== END 2023-10-14 07:22 | disposition home or self-care (01) ==
PROVIDERS: Emergency Provider Emergency Medicine
DX: U07.1 COVID-19 (principal)
CPT/HCPCS: 0241U; 99282; 99283